=== PATIENT | female | born 1955 | race Caucasian/White ===

== ENCOUNTER 2023-05-15 10:30 | Outpatient (RCR) | payer MEDICARE, SELFPAY ==
[2023-05-08 13:48] VITALS: BP 133/93; PULSE 84; RESP 16; TEMP 36.3; BMI 25.3
--- NOTE | 2023-05-08 14:25 | PCM.WC.HP ---
History of Present Illness Date of Service: 05/08/23 Chief Complaint: Full-thickness ulcer left leg wound is healed with evidence of eczema/dermatitis History of Wound: 7 months worsening eczema/dermatitis Progress of Wound: Mrs. Berger is a 67-year-old female presenting to the wound care center today for evaluation of a healed full-thickness ulceration that is shows evidence now of nonhealing eczema/dermatitis to left lower extremity. Patient was seen by a outside provider who has attempted to heal the patient's left lower extremity full-thickness wound, eczema/dermatitis for the past 7 months. She has been on 3 rounds of different antibiotics. She is currently using triamcinolone cream with mupirocin cream which has been uneventful. Patient denies any new wounds. She states that it has improved but is still present. She states there is some itching and burning to the area. She denies any trauma to the area except the initial wound that was caused by a cardboard box. Denies constitutional symptoms. Other pedal complaints at this time. [facility] Home Medications clotrimazole-betamethasone 1 %-0.05 % topical cream 1 applic topical BID 4 weeks #45 grams 05/08/23 [Rx Last Taken Unknown] Vital Signs Vital Signs Vital Signs: 05/08/23 13:48 Temperature 97.4 F L Temperature Source Temporal Pulse Rate 84 Respiratory Rate 16 Blood Pressure 133/93 H Blood Pressure Mean 106 Blood Pressure Source Monitor Blood Pressure Position Sitting Blood Pressure Location Left Arm Oxygen Delivery Method Room Air Weight Weight: 64.864 kg Body Mass Index (BMI) 25.3 Physical Exam Narrative Vascular: DP and PT pulses are palpable bilateral. CFT is brisk. Evidence of varicose veins. Skin temperature great is warm to warm from proximal ankle to distal digits bilateral. Evidence of blanchable erythema at the level of the distal medial left leg. Neurological: Light touch and epicritic station is intact. Dermatological: Evidence of multiple raised plaques appreciated to the distal medial aspect of the left leg. No evidence of open lesions or abrasions are appreciated. Blanchable erythema is noticeable. No proximal streaking or sign of infection. Musculoskeletal: Motor strength is 5 out of 5 in all quadrants bilateral. No pain to palpation to the raised plaques to the distal medial aspect of the left leg. No pain with calf compression. Debridement Note Debridement Note Post-Debridement Measurements and Additional Note: Post-Debridement Measurements/Treatment WC - Nurse 1 - General Ulcer Assessment Start: 05/08/23 13:48 Freq: Status: Active Protocol: HUSSEIN Activity Type Activity Date Activity User E-sign Co-sign Detail Recorded Client Recorded Date Recorded By Document 05/08/23 13:48 GM Desktop 05/08/23 14:02 GM 05/08/23 13:48 WC - Today's Visit Information Type of service Initial Visit Arrival Mode Ambulatory Accompanied by Patient Identification Verified (Name & Yes ) Patient Requires Transmission-Based No Precautions Safety Precautions NA Height and Weight Height 5 ft 3 in Weight 64.864 kg Weight in Pounds 143.0 lbs Weight Measurement Method Stated by Patient Body Mass Index (BMI) 25.3 BMI Classification Overweight BSA - Anai 1.68 Vital Signs Temperature (97.8 F-99.1 F) 97.4 F L Temperature Source Temporal Pulse Rate (60-100) 84 Pulse Location Monitor Respiratory Rate (12-18) 16 Respiratory rate source Observation Oxygen Delivery Method Room Air Blood Pressure (90/60-120/80) 133/93 H Blood Pressure Mean 106 Source Monitor Position Sitting Blood Pressure Location Left Arm History Since Last Visit- (Skip if this is Patient's initial visit) Has compression in place as prescribed N/A Has offloadiing in place as prescribed N/A Left Footwear Regular Shoe Right Footwear Regular Shoe Pain Scale: 0-10 Numeric Is Patient Pain Free? Yes Communication Assessment Preferred language [place] Able to Read Yes Able to Write Yes Communication Tools None Right Hearing Abillity Normal Left Hearing Abillity Normal Visual Assistive Devices Glasses Teaching Assessment Preferences Verbal Barriers to Learning None Readiness To Learn Excellent Willingness to Engage in Self Management High Activies Readiness to Engage in Self Management High Activities Anxiety Level Calm Cooperation Cooperative Perception Coherent Interest in Health Problem Asks Questions Education Importance Acknowledges Need Does Patient Smoke tobacco or other No substances Is Patient Diabetic No Functional Assessment Recent Decline in Ability to Perform Denies Any Declines Assistive Device With Patient No Culture/Confucianist/Senior Java Programmer Cultural/Confucianist Needs that may affect No Treatment Plan Would you allow our hospital manager regional to No meet you for the purpose of spiritual/ emotional support? Senior Java Programmer to contact place of restorationist No WC - Nurse 2 - General Ulcer CM Notes Start: 05/08/23 13:48 Freq: Status: Active Protocol: Activity Type Activity Date Activity User E-sign Co-sign Detail Recorded Client Recorded Date Recorded By Document 05/08/23 14:20 HIRAL Laptop 05/08/23 14:21 05/08/23 14:20 Pain Scale: 0-10 Numeric Is Patient Pain Free? Yes - Nurse 3 - General Ulcer D/C NN Start: 05/08/23 13:48 Freq: Status: Active Protocol: Activity Type Activity Date Activity User E-sign Co-sign Detail Recorded Client Recorded Date Recorded By Document 05/08/23 14:23 Laptop 05/08/23 14:24 05/08/23 14:23 Wound Care Center Nurse 3 Left -Tubular Bandage Single Layer -Size of Tubigrip Used Size E -Size E ($) 1 Pain Scale: 0-10 Numeric Is Patient Pain Free? Yes WC - Visit Discharge Discharge Condition Stable Ambulatory Status Ambulatory Transportation Private Auto Medication Reconcilliation completed & Yes provided to patient/care provider Clinical Summary of Care Provided Yes Assessment/Plan Assessment/Plan (1) Dermatitis: CODE(S): L30.9 - Dermatitis, unspecified PLAN: Patient was examined and evaluated. All findings were discussed with the patient. All questions were answered to the patient's satisfaction. After evaluation the patient shows evidence of either dermatitis or psoriatic arthritis to left lower extremity. Patient does not have a family history of psoriatic arthritis so we are leaning more towards a dermatitis secondary to overuse of antibiotics and topical antibiotics to the left lower extremity. Educated the patient to continue to use hypoallergenic washing soap, body wash and lotion which she was understanding of. The patient will be placed on a combination antifungal and steroid cream, Lotrisone which is breath Methasone and clotrimazole she is to apply this twice daily for the next 30 days. Educated the patient that if she is having problems with the cream to left lower extremity she is to stop and will follow-up in 1 week for planned biopsy. Patient was placed in a Tubigrip for edema control. Follow-up at the wound care center with Dr. Christopher in 1 week. (2) Psoriatic arthritis: CODE(S): L40.50 - Arthropathic psoriasis, unspecified
[2023-05-15 10:49] VITALS: BP 136/76; PULSE 73; RESP 18; TEMP 35.8; BMI 25.3
--- NOTE | 2023-05-15 13:09 | PCM.WC.PN ---
History of Present Illness Date of Service: 05/15/23 Chief Complaint: Full-thickness ulcer left leg wound is healed with evidence of eczema/dermatitis History of Wound: 7 months worsening eczema/dermatitis Progress of Wound: Mrs. Berger is a 67-year-old female presenting to the wound care center today for evaluation of a healed full-thickness ulceration that is shows evidence now of nonhealing eczema/dermatitis to left lower extremity. Patient was seen by a outside provider who has attempted to heal the patient's left lower extremity full-thickness wound, eczema/dermatitis for the past 7 months. She has been on 3 rounds of different antibiotics. She is currently using triamcinolone cream with mupirocin cream which has been uneventful. Patient denies any new wounds. She states that it has improved but is still present. She states there is some itching and burning to the area. She denies any trauma to the area except the initial wound that was caused by a cardboard box. Denies constitutional symptoms. Other pedal complaints at this time. Subjective Subjective Ms. Berger is a 67-year-old female presented to wound care center today for follow-up evaluation of dermatitis/eczema to left lower extremity. Patient has been applying her Lotrisone, betamethasone and antifungal cream to the left leg. She has changed her bathing habits and using hypoallergenic formulated products. She expresses great improvement to her left lower extremity and is extremely grateful for her care. Denies trauma. Denies constitutional symptoms. Other pedal complaints at this time. Objective Data Objective Data Vital Signs: Vital Signs Temp Pulse Resp BP O2 Del Method 96.5 F L 73 18 136/76 H Room Air 05/15/23 10:49 05/15/23 10:49 05/15/23 10:49 05/15/23 10:49 05/15/23 10:49 Oxygen Delivery Method Room Air Weight: 64.864 kg Body Mass Index (BMI) 25.3 Physical Exam Narrative Vascular: DP and PT pulses are palpable bilateral. CFT is brisk. Evidence of varicose veins. Skin temperature great is warm to warm from proximal ankle to distal digits bilateral. Evidence of blanchable erythema at the level of the distal medial left leg, improving. Neurological: Light touch and epicritic station is intact. Dermatological: Evidence of multiple raised plaques appreciated to the distal medial aspect of the left leg. No evidence of open lesions or abrasions are appreciated. Blanchable erythema is noticeable to the left leg, improving. No proximal streaking or sign of infection. Musculoskeletal: Muscle strength is 5 out of 5 in all quadrants bilateral. No pain to palpation to the raised plaques to the distal medial aspect of the left leg, improving. No pain with calf compression. Debridement Note Debridement Note Post-Debridement Measurements and Additional Note: Post-Debridement Measurements/Treatment WC - Nurse 1 - General Ulcer Assessment Start: 05/08/23 13:48 Freq: Status: Active Protocol: WC.LOWEXT Activity Type Activity Date Activity User E-sign Co-sign Detail Recorded Client Recorded Date Recorded By Document 05/08/23 13:48 GM Desktop 05/08/23 14:02 GM Document 05/15/23 10:49 KW Desktop 05/15/23 10:53 KW 05/08/23 05/15/23 13:48 10:49 - Today's Visit Information Type of service Initial Visit Follow-up Visit (Physician/INTELLIGENCE CONSULTANT ) Arrival Mode Ambulatory Ambulatory Accompanied by Patient Identification Verified (Name & Yes Yes ) Patient Requires Transmission-Based No Precautions Safety Precautions NA Height and Weight Height 5 ft 3 in Weight 64.864 kg Weight in Pounds 143.0 lbs Weight Measurement Method Stated by Patient Body Mass Index (BMI) 25.3 25.3 BMI Classification Overweight Overweight BSA - Anai 1.68 Vital Signs Temperature (97.8 F-99.1 F) 97.4 F L 96.5 F L Temperature Source Temporal Temporal Pulse Rate (60-100) 84 73 Pulse Location Monitor Monitor Respiratory Rate (12-18) 16 18 Respiratory rate source Observation Observation Oxygen Delivery Method Room Air Room Air Blood Pressure (90/60-120/80) 133/93 H 136/76 H Blood Pressure Mean (mm Hg) 106 96 Source Monitor Monitor Position Sitting Semi-Fowlers Blood Pressure Location Left Arm Left Arm History Since Last Visit- (Skip if this is Patient's initial visit) Have you changed medications since your No last visit? Any new allergies or adverse reactions No Had a fall/change in ADL's that may No increase risk of falls Signs or symptoms of abuse and/or No neglect since last visit Have you been in the hospital since your No last visit? Has dressing in place as prescribed No Has compression in place as prescribed N/A N/A Has offloadiing in place as prescribed N/A N/A Experienced any changes in pain level or No management Left Footwear Regular Shoe Regular Shoe Right Footwear Regular Shoe Regular Shoe Pain Scale: 0-10 Numeric Is Patient Pain Free? Yes Yes Communication Assessment Preferred language Bol[place] Able to Read Yes Able to Write Yes Communication Tools None Right Hearing Abillity Normal Left Hearing Abillity Normal Visual Assistive Devices Glasses Teaching Assessment Preferences Verbal Barriers to Learning None Readiness To Learn Excellent Willingness to Engage in Self Management High Activies Readiness to Engage in Self Management High Activities Anxiety Level Calm Cooperation Cooperative Perception Coherent Interest in Health Problem Asks Questions Education Importance Acknowledges Need Does Patient Smoke tobacco or other No substances Is Patient Diabetic No Functional Assessment Recent Decline in Ability to Perform Denies Any Declines Assistive Device With Patient No Culture/Sikhism/Trimming Operator Cultural/Sikhism Needs that may affect No Treatment Plan Would you allow our hospital primary school teacher librarian to No meet you for the purpose of spiritual/ emotional support? Trimming Operator to contact place of voodoo No WC - Nurse 1 - General Ulcer Measurement Start: 05/08/23 13:48 Freq: Status: Active Protocol: Activity Type Activity Date Activity User E-sign Co-sign Detail Recorded Client Recorded Date Recorded By Document 05/15/23 10:49 KW Desktop 05/15/23 10:53 KW 05/15/23 10:49 Wound Center Nurse 1 Left Calf (cm) 38.5 Left Ankle (cm) 21 - Nurse 2 - General Ulcer CM Notes Start: 05/08/23 13:48 Freq: Status: Active Protocol: Activity Type Activity Date Activity User E-sign Co-sign Detail Recorded Client Recorded Date Recorded By Document 05/08/23 14:20 Laptop 05/08/23 14:21 Document 05/15/23 11:03 Laptop 05/15/23 11:04 JF 05/08/23 05/15/23 14:20 11:03 Pain Scale: 0-10 Numeric Is Patient Pain Free? Yes Yes - Nurse 3 - General Ulcer D/C NN Start: 05/08/23 13:48 Freq: Status: Active Protocol: Activity Type Activity Date Activity User E-sign Co-sign Detail Recorded Client Recorded Date Recorded By Document 05/08/23 14:23 Laptop 05/08/23 14:24 Document 05/15/23 11:04 Laptop 05/15/23 11:08 JF 05/08/23 05/15/23 14:23 11:04 Wound Care Center Nurse 3 Left -Tubular Bandage Single Layer Single Layer -Size of Tubigrip Used Size E Size E -Size E ($) 1 1 Pain Scale: 0-10 Numeric Is Patient Pain Free? Yes Yes WC - Visit Discharge Discharge Condition Stable Stable Ambulatory Status Ambulatory Ambulatory Transportation Private Auto Accompanied by Medication Reconcilliation completed & Yes Yes provided to patient/care provider Clinical Summary of Care Provided Yes Yes Assessment/Plan Assessment/Plan (1) Dermatitis: CODE(S): L30.9 - Dermatitis, unspecified PLAN: Patient was examined and evaluated. All findings were discussed with the patient. All questions were answered to the patient's satisfaction. The patient's left lower extremity dermatitis/psoriasis plaques are improving while using the betamethasone/clotrimazole cream. Educated patient continue to use the topical steroid and antifungal as written. She will continue to apply compression to left lower extremity. She will continue to wash with hypoallergenic formulated materials. She is grateful for her care Follow-up at the wound care center with Dr. Christopher in 2 week. (2) Psoriatic arthritis: CODE(S): L40.50 - Arthropathic psoriasis, unspecified
--- NOTE | 2023-05-20 08:48 | WC ---
3.13.24 LT MED ANKLE
== END 2023-05-26 23:59 | disposition home or self-care (01) ==
LOC: WC 10:30
PROVIDERS: PCP Family Medicine; Referring Provider Family Medicine; Visit Provider Podiatrist Foot & Ankle Surgery
DX: L30.9 Dermatitis, unspecified (principal); L40.50 Arthropathic psoriasis, unspecified
CPT/HCPCS: 99203; 99213; G0463

== ENCOUNTER 2023-05-29 10:17 | Outpatient (RCR) | payer MEDICARE, SELFPAY ==
[2023-05-27 00:29] VITALS: BP 136/76; PULSE 73; RESP 18; TEMP 35.8; BMI 25.3
[2023-05-29 10:27] VITALS: BP 130/76; PULSE 75; RESP 18; TEMP 35.8; BMI 25.3
--- NOTE | 2023-05-29 10:28 | WC ---
Pt left medial ankle skin intact. no rash noted. no open wound noted
--- NOTE | 2023-05-29 11:24 | PCM.WC.PN ---
History of Present Illness Date of Service: 05/29/23 Chief Complaint: Full-thickness ulcer left leg wound is healed with evidence of eczema/dermatitis History of Wound: 7 months worsening eczema/dermatitis Subjective Subjective Ms. Berger is a 67-year-old female presented to wound care center today for follow-up evaluation of dermatitis/eczema to left lower extremity. Patient has been applying her Lotrisone, betamethasone and antifungal cream to the left leg. She has changed her bathing habits and using hypoallergenic formulated products. She expresses great improvement to her left lower extremity and is extremely grateful for her care. Denies trauma. Denies constitutional symptoms. Other pedal complaints at this time. Objective Data Objective Data Vital Signs: Vital Signs Temp Pulse Resp BP 96.4 F L 75 18 130/76 H 05/29/23 10:27 05/29/23 10:27 05/29/23 10:27 05/29/23 10:27 Weight: 64.864 kg Body Mass Index (BMI) 25.3 Physical Exam Narrative Vascular: DP and PT pulses are palpable bilateral. CFT is brisk. Evidence of varicose veins. Skin temperature great is warm to warm from proximal ankle to distal digits bilateral. Evidence of blanchable erythema at the level of the distal medial left leg, improving. Neurological: Light touch and epicritic station is intact. Dermatological: Evidence of multiple raised plaques appreciated to the distal medial aspect of the left leg, improved. No evidence of open lesions or abrasions are appreciated. Blanchable erythema is noticeable to the left leg, improving. No proximal streaking or sign of infection. Musculoskeletal: Muscle strength is 5 out of 5 in all quadrants bilateral. No pain to palpation to the raised plaques to the distal medial aspect of the left leg, improving. No pain with calf compression. Debridement Note Debridement Note Post-Debridement Measurements and Additional Note: Post-Debridement Measurements/Treatment - Nurse 1 - General Ulcer Assessment Start: 05/29/23 10:27 Freq: Status: Active Protocol: SEBLEEXT Activity Type Activity Date Activity User E-sign Co-sign Detail Recorded Client Recorded Date Recorded By Document 05/29/23 10:27 RB Desktop 05/29/23 10:29 RB 05/29/23 10:27 - Today's Visit Information Type of service Follow-up Visit (Physician/DISTRICT PLANT SUPERINTENDENT ) Arrival Mode Ambulatory Transfer Assistance None Patient Identification Verified (Name & Yes ) Patient Requires Transmission-Based No Precautions Height and Weight Body Mass Index (BMI) 25.3 BMI Classification Overweight Vital Signs Temperature (97.8 F-99.1 F) 96.4 F L Temperature Source Temporal Pulse Rate (60-100) 75 Pulse Location Monitor Respiratory Rate (12-18) 18 Respiratory rate source Observation Blood Pressure (90/60-120/80) 130/76 H Blood Pressure Mean (mm Hg) 94 Source Monitor Position Semi-Fowlers Blood Pressure Location Left Arm History Since Last Visit- (Skip if this is Patient's initial visit) Have you changed medications since your No last visit? Any new allergies or adverse reactions No Had a fall/change in ADL's that may No increase risk of falls Signs or symptoms of abuse and/or No neglect since last visit Have you been in the hospital since your No last visit? Has dressing in place as prescribed Yes Has compression in place as prescribed Yes Has offloadiing in place as prescribed No Experienced any changes in pain level or No management Pain Scale: 0-10 Numeric Is Patient Pain Free? Yes - Nurse 1 - General Ulcer Measurement Start: 05/29/23 10:27 Freq: Status: Active Protocol: Activity Type Activity Date Activity User E-sign Co-sign Detail Recorded Client Recorded Date Recorded By Document 05/29/23 10:27 RB Desktop 05/29/23 10:29 RB 05/29/23 10:27 Wound Center Nurse 1 Lower Limb Edema Present Yes Left Calf (cm) 37.5 Left Ankle (cm) 20.8 05/29/23 10:28 Wound Center by Tory Catalan Pt left medial ankle skin intact. no rash noted. no open wound noted Initialized on 05/29/23 10:28 - END OF NOTE - Nurse 2 - General Ulcer CM Notes Start: 05/29/23 10:27 Freq: Status: Active Protocol: Activity Type Activity Date Activity User E-sign Co-sign Detail Recorded Client Recorded Date Recorded By Document 05/29/23 10:29 Laptop 05/29/23 10:30 JF 05/29/23 10:29 Pain Scale: 0-10 Numeric Is Patient Pain Free? Yes HARLEY - Nurse 3 - General Ulcer D/C NN Start: 05/29/23 10:27 Freq: Status: Active Protocol: Activity Type Activity Date Activity User E-sign Co-sign Detail Recorded Client Recorded Date Recorded By Document 05/29/23 10:32 Laptop 05/29/23 10:32 05/29/23 10:32 Is Patient Pain Free? Yes WC - Visit Discharge Discharge Condition Stable Ambulatory Status Ambulatory Transportation Private Auto Accompanied by Medication Reconcilliation completed & No provided to patient/care provider Clinical Summary of Care Provided No Notes: Patient's rash healed and discharged. Assessment/Plan Assessment/Plan (1) Dermatitis: CODE(S): L30.9 - Dermatitis, unspecified PLAN: Patient was examined and evaluated. All findings were discussed with the patient. All questions were answered to the patient's satisfaction. The patient's left lower extremity dermatitis/psoriasis has improved with using topical Lotrisone. Educated the patient to continue use the cream and give it approximately 30 more days to allow the redness to improve. The patient has shown excellent improvement with using the cream but recommended to use it on other areas and test little spots if she has any plaques arise. Patient was understanding of this. He was also educated the patient that if she needs any additional medication such as Betha Methasone she is to call the office and I will call in a prescription for her. The patient is grateful for her care and will be discharged from the wound care center and will follow-up as needed. Patient will follow-up as needed. (2) Psoriatic arthritis: CODE(S): L40.50 - Arthropathic psoriasis, unspecified
--- NOTE | 2023-05-31 12:24 | WC ---
4.3.24 LT MED ANKLE
== END 2023-06-25 23:59 | disposition home or self-care (01) ==
LOC: WC 10:17
PROVIDERS: PCP Family Medicine; Referring Provider Family Medicine; Visit Provider Podiatrist Foot & Ankle Surgery
DX: L30.9 Dermatitis, unspecified (principal); L40.50 Arthropathic psoriasis, unspecified
CPT/HCPCS: 99213; G0463